=== PATIENT | female | born 1965 | race American Indian/Alaskan Native ===

== ENCOUNTER 2019-03-04 22:41 | Emergency (ER) | payer OTHER ==
[2019-03-05] MEDS ORDERED: APRESOLINE IV ONE (03:10)
--- NOTE | 2019-03-05 03:22 | Emergency Department Report ---
ED General Adult HPI - General Chief complaint: High BP Stated complaint: COUGH Time Seen by Provider: 03/05/19 02:51 Source: patient Mode of arrival: Ambulatory Limitations: No Limitations - History of Present Illness Initial comments: 53-year-old female presents to ED with report of hypertension. Patient went to urgent care today due to cough 6 weeks and wheezing. Upon arrival at the urgent care patient's blood pressure was elevated. BP was 216/140 and patient was advised to come to the ER. Patient states she has not taken her blood pressure medication (hydralazine) in 2 weeks because she moved and it was packed in boxes. Patient denies headache, dizziness, chest pain. -: This evening Location: chest Radiation: non-radiation Improves with: none Worsens with: other (med noncompliance) Associated Symptoms: cough, shortness of breath. denies: chest pain, fever/chills - Related Data Previous Rx's Medication Instructions Recorded Last Taken Type cloNIDine [Catapres] 0.1 mg PO BID PRN #60 tablet 03/05/19 Unknown Rx Allergies Allergy/AdvReac Type Severity Reaction Status Date / Time No Known Allergies Allergy Unverified 09/10/18 15:43 ED Review of Systems ROS: Stated complaint: COUGH Other details as noted in HPI Comment: All other systems reviewed and negative Constitutional: denies: chills, fever Respiratory: cough, wheezing Cardiovascular: denies: chest pain Neurological: denies: headache, vertigo ED Past Medical Hx - Past Medical History Previous Medical History?: Yes Hx Hypertension: Yes - Surgical History Past Surgical History?: Yes Hx Appendectomy: Yes Additional Surgical History: hysterectomy. x 1. hernia repair - Social History Smoking Status: Never Smoker Substance Use Type: None - Medications Home Medications: Home Medications Medication Instructions Recorded Confirmed Last Taken Type cloNIDine [Catapres] 0.1 mg PO BID PRN #60 tablet 03/05/19 Unknown Rx ED Physical Exam - General Limitations: No Limitations General appearance: alert - Head Head exam: Present: atraumatic, normocephalic - Eye Eye exam: Present: normal appearance - ENT ENT exam: Present: mucous membranes moist - Neck Neck exam: Present: normal inspection - Respiratory Respiratory exam: Present: normal lung sounds bilaterally. Absent: respiratory distress - Cardiovascular Cardiovascular Exam: Present: regular rate, normal rhythm - GI/Abdominal GI/Abdominal exam: Present: soft. Absent: distended, tenderness - Extremities Exam Extremities exam: Present: normal inspection - Neurological Exam Neurological exam: Present: alert, oriented X3, CN II-XII intact. Absent: motor sensory deficit - Psychiatric Psychiatric exam: Present: normal affect, normal mood - Skin Skin exam: Present: warm, dry, intact, normal color ED Course Vital Signs 03/04/19 03/05/19 03/05/19 22:45 01:26 01:30 Temperature 98.0 F Pulse Rate 84 70 63 Respiratory 18 14 12 Rate Blood Pressure 201/114 192/167 O2 Sat by Pulse 98 96 97 Oximetry 03/05/19 03/05/19 03/05/19 01:46 02:00 02:16 Temperature Pulse Rate 63 62 68 Respiratory 19 15 14 Rate Blood Pressure 192/167 192/167 192/167 O2 Sat by Pulse 98 96 96 Oximetry 03/05/19 03/05/19 03/05/19 02:30 02:46 03:00 Temperature Pulse Rate 59 L 63 73 Respiratory 18 13 17 Rate Blood Pressure 192/167 192/167 192/167 O2 Sat by Pulse 96 93 94 Oximetry 03/05/19 03/05/19 03/05/19 03:16 03:30 03:46 Temperature Pulse Rate 71 85 89 Respiratory 17 21 21 Rate Blood Pressure 195/106 209/88 209/88 O2 Sat by Pulse 98 100 97 Oximetry 03/05/19 03/05/19 03/05/19 04:00 04:06 04:10 Temperature Pulse Rate 81 81 81 Respiratory 16 34 H 31 H Rate Blood Pressure 200/105 209/88 209/88 O2 Sat by Pulse 96 96 96 Oximetry 03/05/19 03/05/19 03/05/19 04:16 04:20 04:25 Temperature Pulse Rate 81 83 72 Respiratory 20 16 15 Rate Blood Pressure 209/88 205/97 174/94 O2 Sat by Pulse 97 99 99 Oximetry 03/05/19 04:46 Temperature Pulse Rate 77 Respiratory 26 H Rate Blood Pressure 200/105 O2 Sat by Pulse 96 Oximetry ED Medical Decision Making - Radiology Data Radiology results: report reviewed, image reviewed - Medical Decision Making 53 yo F sent to ED for elevated BP. Pt has not taken her hydralazine in 2 weeks. Hydralazine given here in ED, BP improved. Pt is asymptomatic. Neuro exam normal, no deficits. Pt had prescription for clonidine to take PRN BP > 160, but has run out. Requesting refill. CXR normal. Likely bronchitis will prescribe prednisone, tessalon, albuterol - Differential Diagnosis asymptomatic HTN, bronchitis, pneumonia Critical care attestation.: If time is entered above; I have spent that time in minutes in the direct care of this critically ill patient, excluding procedure time. ED Disposition Clinical Impression: Hypertension, Bronchitis Disposition: - TO HOME OR SELFCARE Is pt being admited?: No Condition: Stable Instructions: Acute Bronchitis (ED), Hypertension (ED) Prescriptions: cloNIDine [Catapres] 0.1 mg PO BID PRN #60 tablet PRN Reason: systolic blood pressure >160 Referrals: TANK CHRISTIANSEN MD [Primary Care Provider] - 3-5 Days [facility], [Referring] - 3-5 Days [facility] [Provider Group] - 3-5 Days Forms: Work/School Release Form(ED) Time of Disposition: 04:26
--- NOTE | 2019-03-05 04:16 | XRay Report ---
PROCEDURE: XR CHEST 1V AP TECHNIQUE: Chest radiograph single view. HISTORY: elevated BP COMPARISONS: None . FINDINGS: No mediastinal shift. Cardiac silhouette is not enlarged. No pneumothorax, effusion, or focal pulmona ry opacity identified. No acute skeletal findings. IMPRESSION: No acute pulmonary finding identified. This document is electronically signed by John López MD., March 05 2019 04:13:56 AM ET
[2019-03-05 04:49] VITALS: BP 200/105
== END 2019-03-05 05:01 | disposition home or self-care (01) ==
LOC: ED 22:41
DX: J40 Bronchitis, not specified as acute or chronic (principal); I10 Essential (primary) hypertension; Z90.89 Acquired absence of other organs; Z90.710 Acquired absence of both cervix and uterus
CPT/HCPCS: 71045; 96374; 99283; J0360

== ENCOUNTER 2020-12-26 13:43 | Inpatient (IN) | payer BC, OTHER ==
[2020-12-26] MEDS ORDERED: ONDANSETRON 4 MG ODT TAB PO PRN (14:35)
[2020-12-26] MEDS ORDERED: hydrALAZINE 20 MG/1 ML INJ IV PRN (14:35)
[2020-12-26] MEDS: ACETAMINOPHEN 325 MG TAB PO PRN (22:53)
[2020-12-26] MEDS: carvediloL 12.5 MG TAB PO SCH (22:56)
[2020-12-27 08:02] LABS: Basophils % (Auto) 0.5 % (0.0-1.8); Eosinophils # (Auto) 0.2 K/mm3 (0.0-0.4); Eosinophils % (Auto) 2.7 % (0.0-4.3); Hematocrit 38.1 % (30.3-42.9); Lymphocytes # (Auto) 1.4 K/mm3 (1.2-5.4); Lymphocytes % (Auto) 16.1 % (13.4-35.0); Mean Corpuscular HGB Conc 34 % (30-34); Mean Corpuscular Volume 89 fl (79-97); Monocytes # (Auto) 0.6 K/mm3 (0.0-0.8); Monocytes % (Auto) 7.1 % (0.0-7.3); Platelet Count 317 K/mm3 (140-440); Red Blood Count 4.31 M/mm3 (3.65-5.03); Red Cell Distribution Width 14.8 % (13.2-15.2)
[2020-12-27 08:11] LABS: Alanine Aminotransferase 54 units/L (7-56); BUN/Creatinine Ratio 34; Blood Urea Nitrogen 27 mg/dL (7-17); Calcium 9.5 mg/dL (8.4-10.2); Hemolysis Index 1
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
[2020-12-27] MEDS: CLOPIDOGREL 75 MG TAB PO SCH (09:41)
[2020-12-27] MEDS: NIFEdipine XL 90 MG TAB PO SCH (09:41)
[2020-12-27] MEDS: ASPIRIN EC 81 MG TAB PO SCH (09:41)
[2020-12-27] MEDS: carvediloL 12.5 MG TAB PO SCH ×2 (09:42→21:38)
[2020-12-27] MEDS: ENOXAPARIN 40 MG/0.4 ML INJ SUB-Q SCH (09:44)
[2020-12-27] MEDS: CELECOXIB 100 MG CAP PO SCH (21:37)
[2020-12-28] MEDS: carvediloL 12.5 MG TAB PO SCH ×2 (08:43→21:27)
[2020-12-28] MEDS: NIFEdipine XL 90 MG TAB PO SCH (08:43)
[2020-12-28] MEDS: ENOXAPARIN 40 MG/0.4 ML INJ SUB-Q SCH (08:43)
[2020-12-28] MEDS: PANTOPRAZOLE 20 MG TAB PO SCH (08:44)
[2020-12-28] MEDS: CELECOXIB 100 MG CAP PO SCH ×2 (08:44→21:26)
[2020-12-28] MEDS: CLOPIDOGREL 75 MG TAB PO SCH (08:44)
[2020-12-28] MEDS: ASPIRIN EC 81 MG TAB PO SCH (08:44)
[2020-12-29 07:12] LABS: Hematocrit 39.7 % (30.3-42.9); Hemoglobin 13.5 gm/dl (10.1-14.3); Mean Corpuscular HGB Conc 34 % (30-34); Mean Corpuscular Volume 88 fl (79-97); Platelet Count 331 K/mm3 (140-440); Red Blood Count 4.54 M/mm3 (3.65-5.03); Red Cell Distribution Width 14.6 % (13.2-15.2)
[2020-12-29 07:53] LABS: BUN/Creatinine Ratio 25; Blood Urea Nitrogen 20 mg/dL (7-17); Calcium 9.6 mg/dL (8.4-10.2); Hemolysis Index 4
[2020-12-29] MEDS: ASPIRIN EC 81 MG TAB PO SCH (08:29)
[2020-12-29] MEDS: PANTOPRAZOLE 20 MG TAB PO SCH (08:30)
[2020-12-29] MEDS: CELECOXIB 100 MG CAP PO SCH ×2 (08:30→21:41)
[2020-12-29] MEDS: CLOPIDOGREL 75 MG TAB PO SCH (08:30)
[2020-12-29] MEDS: NIFEdipine XL 90 MG TAB PO SCH (08:30)
[2020-12-29] MEDS: ENOXAPARIN 40 MG/0.4 ML INJ SUB-Q SCH (08:30)
[2020-12-29] MEDS: carvediloL 12.5 MG TAB PO SCH ×2 (08:30→21:41)
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
[2020-12-29] MEDS: POTASSIUM CHLORIDE ER 20 MEQ TAB PO SCH (13:01)
--- NOTE | 2020-12-29 21:08 | IRU Plan of Care ---
Interdisciplinary Plan of Care - [facility] IRU INTERDISCIPLINARY PLAN: [facility] Inpatient Rehab Unit Plan of Care IRU Interdisciplinary Care Plan Start: 12/26/20 19:41 Freq: Admission then PRN Status: Active Protocol: Document 12/29/20 19:56 TH (Rec: 12/29/20 20:01 TH [id number]) Interdisciplinary Problem List Interdisciplinary Problem List Interdisciplinary Problem List Impaired Eating/Swallowing, Query Text:Answers will Trigger Problems Impaired Bathing/Grooming, and Outcomes on Worklist. Impaired Dressing,Impaired Mobility,Impaired Transfers, Impaired Bladder/Bowel Management,Impaired Toileting, Pain Management,Impaired Safety,Impaired Cardiovascular System IRU Interdisciplinary Care Plan Therapy Services Therapy Services Will Include: Physical Therapy,Occupational Query Text:Patient will be seen for a Therapy minimum of 3 hours of daily therapy 5 out of 7 days a week. Therapy intensity may be adjusted within a 7 consecutive day period to effectively serve the individual needs of the patient. Treatment Frequency/Intensity/Duration Treatment Frequency 5 days a week Treatment Intensity 3 hours per day Treatment Duration 7-10 days Problem Area: Eating/Swallowing Eating/Swallowing Outcomes Feed Self Eating/Swallowing Interventions Use of Assistive Devices, Compensatory Strategies,ADL Training,Patient/Caregiver Education Problem Area: Bathing/Grooming Bathing/Grooming Outcomes Improve [place] w/ Grooming,Improve [place] w/ Bathing Bathing/Grooming Interventions ADL Training,Use of Assistive Devices,Therapeutic Exercise, Therapeutic Activity, Neuromuscular Re-Education, Balance Work,Activity Tolerance Work,Patient/ Caregiver Education Problem Area: Dressing Dressing Outcomes Improve [place] w/ UB Dressing,Improve [place] w/ LB Dressing Dressing Interventions ADL Training,Use of Assistive Devices,Neuromuscular Re- Education,Therapeutic Exercise ,Balance Work,Modalities, Patient/Caregiver Education Problem Area: Mobility Mobility Outcomes Improve [place] w/ Bed Mobility,Improve [place] w/ Ambulation,Improve [place] w/ Stairs/Curb, Improve [place] w/ Wheelchair Mobility Interventions Therapeutic Exercise, Neuromuscular Re-Ed.,Activity Tolerance Work,Modalities,Use of Assistive Devices,Patient/ Caregiver Education,Gait Training,Household Mobility Work,W/C Mobility Work Problem Area: Transfers Transfers Outcomes Improve [place] w/ Bed Transfers,Improve [place] w/ Toilet Transfers,Improve [place] w/ Tub/Shower Transfers,Improve [place] w/ Car Transfers Transfers Interventions Transfer Training,Therapeutic Exercise,Neuromuscular Re- Education,Activity Tolerance Work,Use of Assistive Devices, Patient/Caregiver Education Problem Area: Bowel/Bladder Managment Bowel/Bladder Outcomes Bowel/Bladder Interventions Problem Area: Toileting Toileting Outcomes Improve [place] w/ Toileting Toileting Interventions ADL Training,Balance Work,Use of Assistive Devices,Patient/ Caregiver Education Problem Area: Nutrition Nutrition Outcomes Nutrition Interventions Problem Area: Comprehension Comprehension Outcomes Comprehension Interventions Problem Area: Expression Expression Outcomes Expression Interventions Problem Area: Problem Solving Problem Solving Outcomes Problem Solving Interventions Problem Area: Memory Memory Outcomes Memory Interventions Problem Area: Pain Management Pain Management Outcomes Demonstrate/Verbalize Pain Strategies Pain Management Interventions Use of Devices/Modalities ( TENS, hot pack, cold pack, etc .),Positioning/Turning,Patient /Caregiver Education Problem Area: Knowledge Deficits Knowledge Deficits Outcomes Knowledge Deficits Interventions Problem Area: Skin/Tissue Integrity Skin/Tissue Integrity Outcomes Skin/Tissue Integrity Interventions Problem Area: Social Interaction Social Interaction Outcomes Social Interaction Interventions Problem Area: Adjustment to Disability Adjustment to Disability Outcomes Adjustment to Disability Interventions Problem Area: Discharge Concerns Discharge Concerns Outcomes Discharge w/ Necessary Equipment,Have Home Health/ Outpatient Services Discharge Concerns Interventions Discharge Planning,Equipment Assessment, Acquisition and Placement,Family/Caregiver Training Problem Area: Community Reintegration Community Reintegration Outcomes Community Reintegration Interventions Problem Area: Home Management Home Management Outcomes Home Management Interventions Problem Area: Safety Safety Outcomes Safety Interventions Problem Area: Medication Education Medication Education Outcomes Medication Education Interventions Problem Area: Diabetes Education Diabetes Education Outcomes Diabetes Education Interventions Problem Area: Oxygenation Oxygenation Outcomes Oxygenation Interventions Problem Area: Cardiovascular Cardiovascular Outcomes Maintain or Improve Cardiovascular Status Cardiovascular Interventions Assess Vital Signs at least Every 4 hours,Cardiac Monitoring, EKG and ABG as Ordered. Physician Only Medical Prognosis and Rehabilitation Potential (Completed by Physician) Good rehab potential, good medical prognosis This plan of care has been developed based on the findings from the pre- admission assessment, post admission physician evaluation, information gathered from the assessments from all therapy disciplines and other pertinent clinicians. The plan of care has been reviewed and discussed in collaboration with the interdisciplinary team. The plan of care will be reviewed and updated at least weekly.
[2020-12-29] MEDS: traMADol 50 MG TAB PO PRN (21:39)
[2020-12-30] MEDS: ENOXAPARIN 40 MG/0.4 ML INJ SUB-Q SCH (08:07)
[2020-12-30] MEDS: NIFEdipine XL 90 MG TAB PO SCH (08:07)
[2020-12-30] MEDS: PANTOPRAZOLE 20 MG TAB PO SCH (08:07)
[2020-12-30] MEDS: CLOPIDOGREL 75 MG TAB PO SCH (08:07)
[2020-12-30] MEDS: carvediloL 12.5 MG TAB PO SCH ×2 (08:08→22:16)
[2020-12-30] MEDS: POTASSIUM CHLORIDE ER 20 MEQ TAB PO SCH (08:09)
[2020-12-30] MEDS: CELECOXIB 100 MG CAP PO SCH ×2 (08:09→22:14)
[2020-12-30] MEDS: ASPIRIN EC 81 MG TAB PO SCH (08:09)
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
[2020-12-30] MEDS: traMADol 50 MG TAB PO PRN (22:14)
[2020-12-31 08:09] LABS: BUN/Creatinine Ratio 28; Blood Urea Nitrogen 22 mg/dL (7-17); Calcium 9.4 mg/dL (8.4-10.2); Hemolysis Index 4
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
[2020-12-31] MEDS: ENOXAPARIN 40 MG/0.4 ML INJ SUB-Q SCH (11:33)
[2020-12-31] MEDS: NIFEdipine XL 90 MG TAB PO SCH (11:34)
[2020-12-31] MEDS: CLOPIDOGREL 75 MG TAB PO SCH (11:34)
[2020-12-31] MEDS: ASPIRIN EC 81 MG TAB PO SCH (11:35)
[2020-12-31] MEDS: POTASSIUM CHLORIDE ER 20 MEQ TAB PO SCH (11:37)
[2020-12-31] MEDS: CELECOXIB 100 MG CAP PO SCH ×2 (11:37→22:16)
[2020-12-31] MEDS: PANTOPRAZOLE 20 MG TAB PO SCH (11:38)
[2020-12-31] MEDS: carvediloL 12.5 MG TAB PO SCH ×2 (11:38→22:16)
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
[2021-01-01] MEDS: NIFEdipine XL 90 MG TAB PO SCH (08:55)
[2021-01-01] MEDS: ASPIRIN EC 81 MG TAB PO SCH (08:55)
[2021-01-01] MEDS: POTASSIUM CHLORIDE ER 20 MEQ TAB PO SCH (08:55)
[2021-01-01] MEDS: CLOPIDOGREL 75 MG TAB PO SCH (08:55)
[2021-01-01] MEDS: ENOXAPARIN 40 MG/0.4 ML INJ SUB-Q SCH (08:56)
[2021-01-01] MEDS: PANTOPRAZOLE 20 MG TAB PO SCH (08:56)
[2021-01-01] MEDS: carvediloL 12.5 MG TAB PO SCH ×2 (08:56→21:58)
[2021-01-01] MEDS: CELECOXIB 100 MG CAP PO SCH (08:56)
[2021-01-02] MEDS: ASPIRIN EC 81 MG TAB PO SCH (08:17)
[2021-01-02] MEDS: CLOPIDOGREL 75 MG TAB PO SCH (08:17)
[2021-01-02] MEDS: PANTOPRAZOLE 20 MG TAB PO SCH (08:17)
[2021-01-02] MEDS: ENOXAPARIN 40 MG/0.4 ML INJ SUB-Q SCH (08:17)
[2021-01-02] MEDS: carvediloL 12.5 MG TAB PO SCH ×2 (08:17→21:22)
[2021-01-02] MEDS: NIFEdipine XL 90 MG TAB PO SCH (08:17)
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
[2021-01-02 09:12] LABS: Hematocrit 40.5 % (30.3-42.9); Hemoglobin 13.4 gm/dl (10.1-14.3); Mean Corpuscular HGB Conc 33 % (30-34); Mean Corpuscular Volume 88 fl (79-97); Platelet Count 348 K/mm3 (140-440); Red Blood Count 4.58 M/mm3 (3.65-5.03); Red Cell Distribution Width 14.5 % (13.2-15.2)
[2021-01-02 09:31] LABS: Blood Urea Nitrogen 23 mg/dL (7-17); Hemolysis Index 14
[2021-01-02 09:35] LABS: BUN/Creatinine Ratio 33
[2021-01-03] MEDS: NIFEdipine XL 90 MG TAB PO SCH (08:27)
[2021-01-03] MEDS: PANTOPRAZOLE 20 MG TAB PO SCH (08:27)
[2021-01-03] MEDS: ASPIRIN EC 81 MG TAB PO SCH (08:28)
[2021-01-03] MEDS: CLOPIDOGREL 75 MG TAB PO SCH (08:28)
[2021-01-03] MEDS: carvediloL 12.5 MG TAB PO SCH ×2 (08:28→21:57)
[2021-01-03] MEDS: ENOXAPARIN 40 MG/0.4 ML INJ SUB-Q SCH (08:28)
[2021-01-03] MEDS: traMADol 50 MG TAB PO PRN (22:03)
[2021-01-04] MEDS: ENOXAPARIN 40 MG/0.4 ML INJ SUB-Q SCH (08:32)
[2021-01-04] MEDS: ASPIRIN EC 81 MG TAB PO SCH (08:32)
[2021-01-04] MEDS: carvediloL 12.5 MG TAB PO SCH ×2 (08:33→21:32)
[2021-01-04] MEDS: NIFEdipine XL 90 MG TAB PO SCH (08:33)
[2021-01-04] MEDS: CLOPIDOGREL 75 MG TAB PO SCH (08:33)
[2021-01-04] MEDS: traMADol 50 MG TAB PO PRN (21:33)
[2021-01-05] MEDS: ENOXAPARIN 40 MG/0.4 ML INJ SUB-Q SCH (09:47)
[2021-01-05] MEDS: carvediloL 12.5 MG TAB PO SCH ×2 (09:48→21:48)
[2021-01-05] MEDS: ASPIRIN EC 81 MG TAB PO SCH (09:48)
[2021-01-05] MEDS: CLOPIDOGREL 75 MG TAB PO SCH (09:49)
[2021-01-05] MEDS: NIFEdipine XL 90 MG TAB PO SCH (09:50)
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
[2021-01-05] MEDS: traMADol 50 MG TAB PO PRN (21:51)
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
[2021-01-06] MEDS: CLOPIDOGREL 75 MG TAB PO SCH (11:22)
[2021-01-06] MEDS: ENOXAPARIN 40 MG/0.4 ML INJ SUB-Q SCH (11:23)
[2021-01-06] MEDS: ASPIRIN EC 81 MG TAB PO SCH (11:23)
[2021-01-06] MEDS: carvediloL 12.5 MG TAB PO SCH ×2 (11:23→21:28)
[2021-01-06] MEDS: NIFEdipine XL 90 MG TAB PO SCH (11:24)
[2021-01-06] MEDS: ACETAMINOPHEN 325 MG TAB PO PRN (23:57)
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
[2021-01-07] MEDS: ENOXAPARIN 40 MG/0.4 ML INJ SUB-Q SCH (08:04)
[2021-01-07] MEDS: ASPIRIN EC 81 MG TAB PO SCH (08:05)
[2021-01-07] MEDS: carvediloL 12.5 MG TAB PO SCH (08:06)
[2021-01-07] MEDS: CLOPIDOGREL 75 MG TAB PO SCH (08:07)
[2021-01-07] MEDS: NIFEdipine XL 90 MG TAB PO SCH (08:13)
[2021-01-07 11:52] VITALS: BP 130/77
== END 2021-01-07 16:30 | disposition home health service (06) | DRG 56 ==
LOC: 3A 13:43 → UNDOADMIN 13:43 → 3B 19:39
PROVIDERS: ADMIT Physical Medicine & Rehabilitation; ATTEND Physical Medicine & Rehabilitation
DX: I69.351 Hemiplegia and hemiparesis following cerebral infarction affecting right dominant side (principal); I63.9 Cerebral infarction, unspecified; M19.90 Unspecified osteoarthritis, unspecified site; I10 Essential (primary) hypertension; E87.6 Hypokalemia; M25.561 Pain in right knee; K59.00 Constipation, unspecified; E86.9 Volume depletion, unspecified; Z82.49 Family history of ischemic heart disease and other diseases of the circulatory system; Z83.3 Family history of diabetes mellitus; Z79.899 Other long term (current) drug therapy
CPT/HCPCS: 36415; 80048; 80053; 82962; 85025; 85027; G0378; A9270-GY; J1650

== ENCOUNTER 2021-05-19 11:00 | Outpatient (CLI) | payer BC | END 2021-05-19 11:01 | disposition home or self-care (01) | LOC: SLR 11:00 | PROVIDERS: ATTEND Internal Medicine | DX: G47.30 Sleep apnea, unspecified (principal) | CPT/HCPCS: 95810 ==

== ENCOUNTER 2021-06-22 11:00 | Outpatient (CLI) | payer BC | END 2021-06-22 11:01 | disposition home or self-care (01) | LOC: SLR 11:00 | PROVIDERS: ATTEND Internal Medicine | DX: G47.33 Obstructive sleep apnea (adult) (pediatric) (principal) | CPT/HCPCS: 95811 ==

== ENCOUNTER 2022-01-23 06:42 | Emergency (ER) | payer BC ==
[2022-01-23 07:32] VITALS: BP 136/76
[2022-01-23 08:16] LABS: Hemoglobin 11.4 gm/dl (10.1-14.3); Mean Corpuscular HGB Conc 32 % (30-34); Mean Corpuscular Volume 83 fl (79-97); Platelet Count 429 K/mm3 (140-440); Red Blood Count 4.36 M/mm3 (3.65-5.03); Red Cell Distribution Width 16.2 % (13.2-15.2)
[2022-01-23 08:35] LABS: Albumin 4.4 g/dL (3.9-5); Calcium 9.9 mg/dL (8.4-10.2)
[2022-01-23 10:17] LABS: Total Cells Counted 100
[2022-01-23 10:18] LABS: Band Neutrophils # (Manual) 0.4 K/mm3; Basophils % (Manual) 0 % (0.0-1.8); Eosinophils % (Manual) 0 % (0.0-4.3)
[2022-01-23 10:19] LABS: Giant Platelets Few; Platelet Estimate Consistent w Auto; RBC Morphology Normal
== END 2022-01-23 10:26 | disposition left against medical advice (07) ==
LOC: ED 06:42
DX: R10.30 Lower abdominal pain, unspecified (principal); Z53.21 Procedure and treatment not carried out due to patient leaving prior to being seen by health care provider
CPT/HCPCS: 36415; 80053; 83690; 85007; 85025